=== PATIENT | female | born 1990 | race African-American/Black ===

== ENCOUNTER 2021-10-21 09:02 | Outpatient (CLI) | payer BC, OTHER | END 2021-10-21 09:03 | disposition home or self-care (01) | LOC: CSHULT 09:02 | PROVIDERS: ATTEND Family Medicine | DX: Z34.82 Encounter for supervision of other normal pregnancy, second trimester (principal); Z3A.22 22 weeks gestation of pregnancy | CPT/HCPCS: 76805 ==

== ENCOUNTER 2021-12-07 23:11 | Day surgery (SDC) | payer BC, OTHER ==
[2021-12-07 23:26] VITALS: BMI 26.0
[2021-12-08] MEDS ORDERED: hydrALAZINE 20 MG/ML VIAL SLOW IVP PRN (00:14)
== END 2021-12-08 00:57 | disposition home or self-care (01) ==
LOC: CSHLD/OP 23:11
PROVIDERS: ATTEND Family Medicine
DX: O46.93 Antepartum hemorrhage, unspecified, third trimester (principal); Z3A.29 29 weeks gestation of pregnancy
CPT/HCPCS: 99283

== ENCOUNTER 2022-01-09 17:06 | Observation (INO) | payer BC, OTHER ==
[2022-01-09 17:32] VITALS: BMI 27.4
[2022-01-09] MEDS ORDERED: hydrALAZINE 20 MG/ML VIAL SLOW IVP PRN (18:13)
[2022-01-09] MEDS ORDERED: Lactated Ringer's 1,000 ML IV SCH (18:45)
[2022-01-09 18:51] LABS: Bilirubin Neg (Negative); Blood, Urine Negative (Negative); Clarity Clear (Clear); Glucose, Urine (Dipstick) Normal (Negative); Ketone, Urine Negative (Negative); Leukocyte Negative (Negative); Nitrite Negative (Negative); Protein, Urine (Dipstick) Negative (Neg-Trace); Urobilinogen Normal mg/dL (Less than 2); pH, Urine 6.5 (5.0-9.0)
[2022-01-09 18:52] LABS: Urine Culture Reflex No No
[2022-01-09 18:55] LABS: Bacteria/HPF None Seen HPF (None Seen); RBC/HPF 0-3 HPF (0-3); Squamous Epithelial 0-3 HPF (0-3); WBC/HPF 0-3 HPF (0-3)
[2022-01-09 18:59] LABS: #Eosinphils 0.1 10x3/uL (0.0-0.5); #Monocytes 1.4 10x3/uL (0.0-1.1); #Neutrophils 9.3 10x3/uL (1.5-8.4); %Basophils 0.2 % (0.0-2.0); %Eosinophils 0.6 % (0.0-6.0); %Monocytes 10.7 % (0.0-10.0); %Neutrophils 72.3 % (40.0-75.0); Hemoglobin 9.2 g/dL (12.0-15.5); Mean Corpuscular HGB CONC 31.8 g/dL (32.0-36.0); Mean Corpuscular Volume 81.6 fl (81.6-98.3); Mean Platelet Volume 9.9 fl (7.4-10.4); Platelet Count 387 10x3/uL (150-450); RBC Distribution Width 13.6 % (11.5-14.5); Red Blood Cell (RBC) Count 3.54 10x6/uL (3.90-5.03); White Blood Cell (WBC) Count 12.9 10x3/uL (3.5-10.5)
[2022-01-09] MEDS ORDERED: Lactated Ringer's 300 ML IV SCH (19:00)
[2022-01-09 19:22] LABS: ALT (SGPT) 6 U/L (8-55); AST (SGOT) 16 U/L (5-34); Albumin 3.5 g/dL (3.5-5.0); Alkaline Phosphatase 199 U/L (40-110); Anion Gap 15 mmol/L (10-20); BUN (Urea Nitrogen) 7 mg/dL (7.0-18.7); Bilirubin, Total 0.5 mg/dL (0.2-1.2); Calc. Creatinine Clearance 134 mL/min (70-130); Calcium 8.6 mg/dL (7.8-10.44); Carbon Dioxide 20 mmol/L (22-29); Chloride 104 mmol/L (98-107); Estimated GFR 119; Globulin 3.2 g/dL (2.4-3.5); Glucose 85 mg/dL (70-105); Protein, Total 6.7 g/dL (6.0-8.3); Sodium 135 mmol/L (136-145)
[2022-01-09 20:59] LABS: Fetal Membranes Rupture No Membranes Rupture (No Rupture)
[2022-01-09] MEDS ORDERED: Promethazine HCl 25 MG/ML VIAL IM PRN (21:50)
[2022-01-09] MEDS ORDERED: Ondansetron PF 4 MG/2 ML Vial IVP PRN (21:50)
[2022-01-09] MEDS: Lactated Ringer's 1,000 ML IV SCH (21:55)
[2022-01-10] MEDS ORDERED: Ferrous Sulfate 325 MG TAB PO SCH (08:00)
[2022-01-10] MEDS ORDERED: Prenatal Vitamin 1 TAB PO SCH (09:00)
[2022-01-10] MEDS: Lactated Ringer's 1,000 ML IV SCH (19:15)
[2022-01-11] MEDS: Lactated Ringer's 1,000 ML IV SCH (06:00)
== END 2022-01-11 10:32 | disposition home or self-care (01) ==
LOC: CSHLD/OP 17:06 → CSHLD 22:18
PROVIDERS: ADMIT Family Medicine; ATTEND Family Medicine
DX: O26.893 Other specified pregnancy related conditions, third trimester (principal); R10.13 Epigastric pain; M54.50 Low back pain, unspecified; O41.03X0 Oligohydramnios, third trimester, not applicable or unspecified; O99.013 Anemia complicating pregnancy, third trimester; D64.9 Anemia, unspecified; O99.113 Other diseases of the blood and blood-forming organs and certain disorders involving the immune mechanism complicating pregnancy, third trimester; D72.829 Elevated white blood cell count, unspecified; Z91.018 Allergy to other foods; Z3A.33 33 weeks gestation of pregnancy
CPT/HCPCS: 36415; 76816; 76819; 80053; 81001; 82728; 84112; 85025; 99285; J7120

== ENCOUNTER 2022-01-12 01:00 | Inpatient (IN) | payer BC, OTHER ==
[2022-01-12 01:24] VITALS: BMI 27.4
[2022-01-12 02:20] LABS: #Eosinphils 0.1 10x3/uL (0.0-0.5); #Monocytes 1.2 10x3/uL (0.0-1.1); #Neutrophils 7.7 10x3/uL (1.5-8.4); %Basophils 0.2 % (0.0-2.0); %Eosinophils 0.9 % (0.0-6.0); %Lymphocytes 20.4 % (18.0-47.0); %Monocytes 10.5 % (0.0-10.0); %Neutrophils 67.7 % (40.0-75.0); Hemoglobin 8.5 g/dL (12.0-15.5); Mean Corpuscular HGB CONC 31.8 g/dL (32.0-36.0); Mean Corpuscular Hemoglobin 25.8 pg (27.0-33.0); Mean Corpuscular Volume 80.9 fl (81.6-98.3); Mean Platelet Volume 9.9 fl (7.4-10.4); Platelet Count 372 10x3/uL (150-450); RBC Distribution Width 13.8 % (11.5-14.5); White Blood Cell (WBC) Count 11.3 10x3/uL (3.5-10.5)
[2022-01-12] MEDS ORDERED: Lactated Ringer's 1,000 ML IV SCH ×2 (02:30→07:45)
[2022-01-12 02:36] LABS: ALT (SGPT) 6 U/L (8-55); AST (SGOT) 15 U/L (5-34); Albumin 3.2 g/dL (3.5-5.0); Alkaline Phosphatase 199 U/L (40-110); Anion Gap 13 mmol/L (10-20); BUN (Urea Nitrogen) 7 mg/dL (7.0-18.7); Bilirubin, Total 0.3 mg/dL (0.2-1.2); Calc. Creatinine Clearance 138 mL/min (70-130); Calcium 8.5 mg/dL (7.8-10.44); Carbon Dioxide 20 mmol/L (22-29); Chloride 104 mmol/L (98-107); Estimated GFR 120; Globulin 3.4 g/dL (2.4-3.5); Glucose 117 mg/dL (70-105); Potassium 3.5 mmol/L (3.5-5.1); Protein, Total 6.6 g/dL (6.0-8.3); Sodium 133 mmol/L (136-145)
[2022-01-12 03:15] LABS: INR-International Normal Ratio 0.9; PTT 28.2 sec (22.0-33.0); Prothrombin Time 9.6 sec (9.5-12.1)
[2022-01-12] MEDS ORDERED: Promethazine HCl 25 MG/ML VIAL IM PRN ×3 (07:34→10:38)
[2022-01-12] MEDS ORDERED: Bicitra 30 ML UDCUP PO PRN (07:34)
[2022-01-12] MEDS ORDERED: Famotidine/PF 20 mg/2ml Vial SLOW IVP PRN (07:34)
[2022-01-12] MEDS ORDERED: hydrALAZINE 20 MG/ML VIAL SLOW IVP PRN ×2 (07:34→10:38)
[2022-01-12] MEDS ORDERED: Ondansetron PF 4 MG/2 ML Vial IVP PRN ×3 (07:34→10:38)
[2022-01-12] MEDS ORDERED: CEFAZOLIN 2 GM in Sodium Chloride 0.9% 100 ML IVPB SCH (07:45)
[2022-01-12] MEDS ORDERED: Meperidine HCl/PF 25 MG/ML VIAL SLOW IVP PRN (07:52)
[2022-01-12] MEDS ORDERED: Naloxone HCl 0.4 mg/ml Vial IV PRN (07:52)
[2022-01-12] MEDS ORDERED: Promethazine HCl 25 MG SUPP PR PRN (07:52)
[2022-01-12] MEDS ORDERED: Moisturizing Cream (Eucerin) 113 GM JAR TOP PRN (07:52)
[2022-01-12] MEDS ORDERED: Fentanyl 100 MCG/2 ML VIAL SLOW IVP PRN (07:52)
[2022-01-12] MEDS ORDERED: Ketorolac Tromethamine 30 MG/ML VIAL IVP PRN (07:52)
[2022-01-12] MEDS ORDERED: Ondansetron HCl/PF 4 MG/2 ML Vial IVP PRN (07:52)
[2022-01-12] MEDS ORDERED: HYDROmorphone 2 MG/ML VIAL SLOW IVP PRN (07:52)
[2022-01-12] MEDS ORDERED: diphenhydrAMINE 50 MG/ML VIAL IVP PRN (07:52)
[2022-01-12] MEDS ORDERED: Naloxone HCl 0.4 mg/ml Vial IVP PRN ×2 (07:52)
[2022-01-12] MEDS ORDERED: CEFAZOLIN 2 GM VIAL ONE (07:53)
[2022-01-12] MEDS ORDERED: Famotidine/PF 20 mg/2ml Vial ONE (07:54)
[2022-01-12] MEDS ORDERED: Carboprost 250 MCG/ML AMP ONE (07:55)
[2022-01-12] MEDS ORDERED: Tranexamic Acid 1,000 MG/10 ML VIAL ONE (07:55)
[2022-01-12] MEDS ORDERED: Ketorolac Tromethamine 30 MG/ML VIAL IVP SCH (08:00)
[2022-01-12] MEDS ORDERED: Communication Order-Pharmacy FS PRN (08:00)
[2022-01-12] MEDS ORDERED: Ondansetron PF 4 MG/2 ML Vial ONE (08:05)
[2022-01-12] MEDS ORDERED: Oxytocin 10 UNITS/ML VIAL ONE (08:05)
[2022-01-12] MEDS ORDERED: Morphine PF 10 MG/10 ML VIAL ONE (08:05)
[2022-01-12] MEDS ORDERED: Phenylephrine 10 MG/ML VIAL ONE (08:05)
[2022-01-12] MEDS ORDERED: Dexamethasone 4 mg/ml Vial ONE (08:05)
[2022-01-12] MEDS ORDERED: Fentanyl 100 MCG/2 ML VIAL ONE ×2 (08:05→10:04)
[2022-01-12] MEDS ORDERED: Triamcinolone 40 MG/ML VIAL IM SCH (08:30)
[2022-01-12] MEDS ORDERED: PROPOFOL 20 ML ONE (08:32)
[2022-01-12] MEDS ORDERED: Bisacodyl 10 MG SUPP PR PRN (10:38)
[2022-01-12] MEDS ORDERED: HYDROcodone/Acetaminophen 5/325 mg Tablet PO PRN (10:38)
[2022-01-12] MEDS ORDERED: diphenhydrAMINE 25 MG CAP PO PRN (10:38)
[2022-01-12] MEDS ORDERED: Lanolin Ointment 7 GM TUBE TOP PRN (10:38)
[2022-01-12] MEDS ORDERED: Simethicone Chewable 80 MG TAB PO PRN (10:38)
[2022-01-12] MEDS ORDERED: Meperidine HCl/PF 25 MG/ML VIAL IM PRN (10:38)
[2022-01-12] MEDS ORDERED: Boostrix 0.5 ML (Tdap) VIAL (>/=7 yrs of age) IM ONE (11:00)
[2022-01-12] MEDS: Ketorolac Tromethamine 30 MG/ML VIAL IVP SCH ×2 (15:28→21:23)
[2022-01-12] MEDS: Ferrous Sulfate 325 MG TAB PO SCH (21:23)
[2022-01-12] MEDS: Docusate 100 MG CAP PO SCH (21:23)
[2022-01-13] MEDS: Ketorolac Tromethamine 30 MG/ML VIAL IVP SCH ×2 (03:17→09:30)
[2022-01-13 05:20] LABS: Hemoglobin 7.5 g/dL (12.0-15.5); Mean Corpuscular HGB CONC 31.5 g/dL (32.0-36.0); Mean Corpuscular Hemoglobin 25.7 pg (27.0-33.0); Mean Corpuscular Volume 81.5 fl (81.6-98.3); Mean Platelet Volume 9.8 fl (7.4-10.4); Platelet Count 353 10x3/uL (150-450); RBC Distribution Width 13.9 % (11.5-14.5); Red Blood Cell (RBC) Count 2.92 10x6/uL (3.90-5.03); White Blood Cell (WBC) Count 23.6 10x3/uL (3.5-10.5)
[2022-01-13] MEDS: Docusate 100 MG CAP PO SCH (09:31)
[2022-01-13] MEDS: Ferrous Sulfate 325 MG TAB PO SCH (09:31)
[2022-01-13] MEDS: Prenatal Vitamin 1 TAB PO SCH (09:31)
[2022-01-13] MEDS: HYDROcodone/Acetaminophen 5/325 mg Tablet PO PRN ×2 (09:32→14:22)
[2022-01-13] MEDS: Ibuprofen 800 MG TAB PO SCH (14:23)
[2022-01-14] MEDS: Ferrous Sulfate 325 MG TAB PO SCH ×3 (00:03→22:07)
[2022-01-14] MEDS: Docusate 100 MG CAP PO SCH ×3 (00:04→22:08)
[2022-01-14] MEDS: Ibuprofen 800 MG TAB PO SCH ×7 (00:04→23:57)
[2022-01-14] MEDS: HYDROcodone/Acetaminophen 5/325 mg Tablet PO PRN ×5 (05:04→23:58)
[2022-01-14] MEDS: Prenatal Vitamin 1 TAB PO SCH (09:40)
[2022-01-15] MEDS: HYDROcodone/Acetaminophen 5/325 mg Tablet PO PRN ×3 (06:00→16:17)
[2022-01-15] MEDS: Docusate 100 MG CAP PO SCH (08:05)
[2022-01-15] MEDS: Ibuprofen 800 MG TAB PO SCH ×2 (08:05→16:16)
[2022-01-15] MEDS: Prenatal Vitamin 1 TAB PO SCH (08:07)
[2022-01-15] MEDS: Ferrous Sulfate 325 MG TAB PO SCH (08:07)
[2022-01-15 17:01] VITALS: BP 110/59; TEMP 98.3
== END 2022-01-15 17:40 | disposition home or self-care (01) | DRG 787 ==
LOC: CSHLD/OP 01:00 → CSHLD 07:34 → CSHPP 11:40
PROVIDERS: ADMIT Family Medicine; ATTEND Family Medicine
PROC: 10D00Z1 Extraction of Products of Conception, Low, Open Approach (ICD-10-PCS; principal; 2022-01-12)
DX: O45.93 Premature separation of placenta, unspecified, third trimester (principal); D62 Acute posthemorrhagic anemia; Z3A.34 34 weeks gestation of pregnancy; Z37.0 Single live birth; O99.02 Anemia complicating childbirth
CPT/HCPCS: 36415; 51702; 76815; 76816; 76819; 80053; 81001; 82728; 84112; 85025; 85027; 85384; 85610; 85730; 86850; 86900; 86901; 88307; 99285; G0378; J0690; J1100; J1885; J2274; J2370; J2405; J2590; J2704; J3010; J3301; J3490; J7120; S0028

== ENCOUNTER 2023-10-17 21:41 | Inpatient (IN) | payer BC, OTHER ==
[~2023-10-17 21:41] MED LIST: Bupivacaine 0.25% HCL 30 ML VIAL ONE
[2023-10-17 22:08] VITALS: BMI 30.6
[2023-10-17 22:19] LABS: Fetal Membranes Rupture RUPTURE DETECTED (No Rupture)
[2023-10-17] MEDS ORDERED: fentaNYL 50 mcg/mL 1 mL Vial SLOW IVP PRN (23:08)
[2023-10-17] MEDS ORDERED: Promethazine HCl 25 MG/ML VIAL IM PRN (23:15)
[2023-10-17] MEDS ORDERED: Acetaminophen 500 MG TAB PO PRN (23:15)
[2023-10-17] MEDS ORDERED: hydrALAZINE 20 MG/ML VIAL SLOW IVP PRN (23:15)
[2023-10-17] MEDS ORDERED: Lactated Ringer's 1,000 ML IV SCH (23:15)
[2023-10-17] MEDS ORDERED: Ondansetron PF 4 MG/2 ML Vial IVP PRN (23:15)
[2023-10-17] MEDS ORDERED: Lidocaine 1% (PF) 30 ML VIAL SC PRN (23:15)
[2023-10-17 23:24] LABS: Hematocrit 31.3 % (34.9-44.5); Hemoglobin 9.7 g/dL (12.0-15.5); Mean Corpuscular Hemoglobin 22.2 pg (27.0-33.0); Mean Corpuscular Volume 71.8 fL (81.6-98.3); Mean Platelet Volume 10.8 fL (7.4-10.4); Platelet Count 334 10x3/uL (150-450); RBC Distribution Width 16.9 % (11.5-14.5); Red Blood Cell (RBC) Count 4.36 10x6/uL (3.90-5.03)
[2023-10-17 23:41] LABS: Syphilis Antibody Nonreactive (Nonreactive); Syphilis Antibody Index 0.06 S/CO (<1.00 Non-Reactive)
[2023-10-17 23:42] LABS: HBsAg Index 0.16 S/CO (0-0.99); Hep B Surf Ag - L&D Non-Reactive S/CO (NonReactive)
[2023-10-18] MEDS: fentaNYL/Ropivacaine Epidural 100 ML ONE (00:04)
[2023-10-18] MEDS ORDERED: ePHEDrine Sulfate 50 MG/10 ML VIAL SLOW IVP PRN (00:34)
[2023-10-18] MEDS ORDERED: Acetaminophen 325 MG TAB PO PRN (00:34)
[2023-10-18] MEDS ORDERED: Ondansetron PF 4 MG/2 ML Vial IVP PRN ×2 (00:34→05:26)
[2023-10-18] MEDS ORDERED: Promethazine HCl 25 MG/ML VIAL IM PRN ×2 (00:34→05:26)
[2023-10-18] MEDS ORDERED: Naloxone HCl 0.4 mg/ml Vial IVP PRN ×2 (00:34)
[2023-10-18] MEDS ORDERED: Moisturizing Cream (Eucerin) 113 GM JAR TOP PRN (00:34)
[2023-10-18] MEDS ORDERED: diphenhydrAMINE 50 MG/ML VIAL IVP PRN (00:34)
[2023-10-18] MEDS ORDERED: Lactated Ringer's 500 ML IV PRN (00:34)
[2023-10-18] MEDS ORDERED: Communication Order-Pharmacy FS SCH (00:45)
[2023-10-18] MEDS ORDERED: fentaNYL 2 mcg/Ropivacaine 0.2% Epidural 100 ML CADD EPIDURAL SCH (00:45)
[2023-10-18] MEDS: Lactated Ringer's 1,000 ML IV SCH (01:46)
[2023-10-18] MEDS: Oxytocin 30 units/NS 500 ML 500 ML IVPB SCH (02:32)
[2023-10-18] MEDS ORDERED: Milk Of Magnesia 30 ML UDCUP PO PRN (05:26)
[2023-10-18] MEDS ORDERED: diphenhydrAMINE 25 MG CAP PO PRN (05:26)
[2023-10-18] MEDS ORDERED: hydrALAZINE 20 MG/ML VIAL SLOW IVP PRN (05:26)
[2023-10-18] MEDS ORDERED: Benzocaine-Menthol 82.5 ML CAN TOP PRN (05:26)
[2023-10-18] MEDS ORDERED: Bisacodyl 10 MG SUPP PR PRN (05:26)
[2023-10-18] MEDS ORDERED: Lanolin Ointment 7 GM TUBE TOP PRN (05:26)
[2023-10-18] MEDS: Boostrix 0.5 ML (Tdap) VIAL (>/=7 yrs of age) IM ONE (07:19)
[2023-10-18] MEDS: Misoprostol 200 MCG TAB ONE (07:19)
[2023-10-18] MEDS: Carboprost 250 MCG/ML AMP ONE (07:19)
[2023-10-18] MEDS: Tranexamic Acid 1,000 MG/10 ML VIAL ONE (07:19)
[2023-10-18] MEDS: Methylergonovine 0.2 MG/ML VIAL ONE (07:19)
[2023-10-18] MEDS: HYDROcodone/Acetaminophen 5/325 mg Tablet PO PRN (07:28)
[2023-10-18] MEDS: Ibuprofen 800 MG TAB PO SCH (07:29)
[2023-10-18] MEDS: Prenatal Vitamin 1 TAB PO SCH (07:29)
[2023-10-18] MEDS: Docusate 100 MG CAP PO SCH (07:29)
[2023-10-18] MEDS ORDERED: Bupivacaine/Epinephrine 0.25% 30 ML VIAL ONE (08:00)
[2023-10-18] MEDS: Ferrous Sulfate 325 MG TAB PO SCH (08:57)
[2023-10-18 23:33] VITALS: TEMP 97.8
[2023-10-19 07:43] VITALS: BP 116/66
== END 2023-10-19 15:00 | disposition home or self-care (01) | DRG 806 ==
LOC: CSHLD/OP 21:41 → CSHLD 23:04 → UNDOADMIN 10-18 00:03 → CSHLD 10-18 05:10 → CSHPP 10-18 05:10
PROVIDERS: ADMIT Family Medicine; ATTEND Family Medicine
PROC: 10E0XZZ Delivery of Products of Conception, External Approach (ICD-10-PCS; principal; 2023-10-18)
PROC: 0UQGXZZ Repair Vagina, External Approach (ICD-10-PCS; 2023-10-18)
PROC: 3E033XZ Introduction of Vasopressor into Peripheral Vein, Percutaneous Approach (ICD-10-PCS; 2023-10-18)
DX: O42.02 Full-term premature rupture of membranes, onset of labor within 24 hours of rupture (principal); O71.4 Obstetric high vaginal laceration alone; Z37.0 Single live birth; Z3A.38 38 weeks gestation of pregnancy
CPT/HCPCS: 51702; 84112; 85027; 86780; 86850; 86900; 86901; 87340; 99285; J0665; J2590; J7120